=== PATIENT | male | born 1995 | race Caucasian/White ===

== ENCOUNTER 2020-03-18 01:28 | Outpatient (CLI) | payer OTHER, SELFPAY ==
[2020-03-19 14:16] LABS: SARS-CoV-2 RNA PCR Negative
== END 2020-03-18 01:29 | disposition home or self-care (01) ==
LOC: ANHCOVIDDT 01:28
PROVIDERS: PCP Pediatrics; Visit Provider Internal Medicine Gastroenterology
DX: Z01.818 Encounter for other preprocedural examination (principal); Z20.828 Contact with and (suspected) exposure to other viral communicable diseases
CPT/HCPCS: 87635; C9803; U0003

== ENCOUNTER 2020-03-21 00:49 | Day surgery (SDC) | payer OTHER, SELFPAY ==
[2020-03-14 15:59] VITALS: BMI 36.3
[2020-03-21 11:15] VITALS: BP 145/78; PULSE 52; RESP 16; TEMP 36.2; O2SAT 97; BMI 36.2
[2020-03-21] MEDS: LACTATED RINGERS 1,000 ML 150 ML IV CONT (11:24)
--- NOTE | 2020-03-21 11:30 | WPDANESEPPF ---
Anes - Initial Pre Proc Eval Procedure: Operation Date: 03/21/20 12:15 Proposed Procedures p Esophagogastroduodenoscopy - Torito Sutherland MD Date/Time: 03/21/20 11:30 Surgeon: Torito Sutherland MD Pre Op Diagnosis: GERD Patient Data Age: 24 Gender: M Height: 6 ft 3 in Weight: 131.5 kg Last Vital Signs Temp 97.1 F L 03/21/20 11:15 Pulse 52 L 03/21/20 11:15 Resp 16 03/21/20 11:15 BP 145/78 H 03/21/20 11:15 Pulse Ox 97 03/21/20 11:15 Allergies Allergy/AdvReac Type Severity Reaction Status Date / Time No Known Allergies Allergy Verified 03/14/20 15:57 Home Medications Medication Instructions Recorded Confirmed Type pantoprazole 40 mg tablet,delayed 40 mg PO QAM #30 tablet 01/26/20 03/14/20 Rx release ondansetron HCl 4 mg tablet 4 mg PO Q6H PRN #30 tablet 03/03/20 03/14/20 Rx Patient hx anesthesia problems: none Family hx anesthesia problems: none PMFSH Past Medical History Medical History Marijuana use Family History Family History (Updated 01/14/20 @ 13:41 by Neena Olivera) Mother Hypothyroidism Grandparent Diabetes mellitus Glaucoma Asthma Social History Social History Years smoked: 2 Smoking status: Never smoker Smokeless tobacco user: chewing tobacco Alcohol intake: current Substance use: never Substance use type: marijuana Last use: 03/11/2020 Living arrangements: with family Spiritual care concerns: No Anes - Eval Final PreProcedure Day of Procedure 03/21/20 11:30 Patient weight: obese Heart: regular rate and rhythm Lungs: clear to auscultation Airway: Mallampati scale class II Neurological: alert and oriented Last oral intake: >/= 8 hours ASA classification: II Emergent: no Anesthetic plan: proceed Anesthesia type and monitoring: general GIVS and standard monitoring Informed Consent: The patient's anesthetic plan and its attendant risks and benefits were discussed with the patient/family/POA. Questions were solicited and answers provided to the satisfaction of the patient/family/POA.
[2020-03-21] MEDS: BENZOCAINE (*SP) 60 ML SPRAY CAN (HURRICAINE) 1 SPRAY MUCOUS MEM (11:43)
--- NOTE | 2020-03-21 11:43 | PM.HPGS ---
History of Present Illness History of Present Illness Consent: Risks, benefits, and alternatives have been discussed and questions answered. Patient agrees to proceed with procedure. Chief complaint: GERD Narrative: Rios Ramos is a 24 year old male with intermittent nausea and vomiting undigested food, on ppi and zofran Review of Systems Constitutional: Constitutional: Denies headache(s) and Denies weakness Eyes: Eyes: Denies blurry vision ENT: Reports Normal hearing present, Denies headache(s) and Denies neck pain Cardiovascular: Cardiovascular: Denies chest pain and Denies dyspnea Respiratory: Respiratory: Denies dyspnea Gastrointestinal: Gastrointestinal: Reports no additional gastrointestinal complaints Genitourinary: Genitourinary: Denies dysuria Musculoskeletal: Musculoskeletal: Denies neck pain Integumentary/Breasts: Skin/Breast: Denies dry skin Neurologic: Reports Normal hearing present, Denies headache(s) and Denies weakness Psychiatric: Psychiatric: Denies anxiety Endocrine: Endocrine: Denies change in body appearance Hematologic/Lymphatic: Hematologic/Lymphatic: Denies easy bleeding Allergic/Immunologic: Allergic/Immunologic: Denies urticaria PMF Past Medical History Medical History (Updated 03/21/20 @ 11:43 by Torito Sutherland MD) Marijuana use Nausea and vomiting in adult Family History Family History (Updated 01/14/20 @ 13:41 by Neena Olivera) Mother Hypothyroidism Grandparent Diabetes mellitus Glaucoma Asthma Social History Social History Years smoked: 2 Smoking status: Never smoker Smokeless tobacco user: chewing tobacco Alcohol intake: current Substance use: never Substance use type: marijuana Last use: 03/11/2020 Living arrangements: with family Spiritual care concerns: No Meds Home Medications and Allergies Home Medications Medication Instructions Recorded Confirmed Type pantoprazole 40 mg tablet,delayed 40 mg PO QAM #30 tablet 01/26/20 03/14/20 Rx release ondansetron HCl 4 mg tablet 4 mg PO Q6H PRN #30 tablet 03/03/20 03/14/20 Rx Allergies Allergy/AdvReac Type Severity Reaction Status Date / Time No Known Allergies Allergy Verified 03/14/20 15:57 Vital Signs Vital Signs - 24 hr 03/21/20 11:15 Temperature 97.1 F L Pulse Rate 52 L Respiratory Rate 16 Blood Pressure 145/78 H Pulse Oximetry 97 Exam Const: General: comfortable and no acute distress HENMT: General nose exam: Normal nares present Eyes: General: appearance normal, both eyes and all related structures Neck: Neck: no JVD Resp: Auscultation: clear to auscultation bilaterally Cardio: Rate: regular rate Rhythm: regular rhythm GI: Inspection: non-distended GI Palp: Yes Soft to palpation Skin: General skin exam: normal color Neuro: General: gait normal Speech: normal speech Extrem: General: normal to inspection Psych: Mental Status: mental status grossly normal Assessment and Plan Assessment and plan (1) Nausea and vomiting in adult: Code(s): R11.2 - Nausea with vomiting, unspecified Status: Acute Assessment and Plan: will proceed with egd and bx (2) Marijuana use: Code(s): F12.90 - Cannabis use, unspecified, uncomplicated Status: Acute
[2020-03-21 11:59] VITALS: BP 118/64; PULSE 63; RESP 20; O2SAT 99
[2020-03-21 12:09] VITALS: BP 113/64; PULSE 52; RESP 22; O2SAT 97
[2020-03-21 12:19] VITALS: BP 122/73; PULSE 53; RESP 18; O2SAT 98
== END 2020-03-21 12:25 | disposition home or self-care (01) ==
PROVIDERS: PCP Family Medicine; Visit Provider Internal Medicine Gastroenterology
PROC: 0DJ08ZZ Inspection of Upper Intestinal Tract, Via Natural or Artificial Opening Endoscopic (ICD-10-PCS; CPT 43235; principal; 2020-03-21 12:15)
DX: R11.2 Nausea with vomiting, unspecified (principal); K21.9 Gastro-esophageal reflux disease without esophagitis; F12.90 Cannabis use, unspecified, uncomplicated; F17.220 Nicotine dependence, chewing tobacco, uncomplicated
CPT/HCPCS: 43239; 88305; J2704; J7120